=== PATIENT | female | born 1960 | race Caucasian/White ===

== ENCOUNTER 2017-10-31 06:18 | Inpatient (IN) | payer BC ==
[2017-10-30 15:55] VITALS: BMI 24.2
[2017-10-31] MEDS ORDERED: fentaNYL CITRATE 250 MCG/5 ML VIAL ONE ×2 (07:19→11:13)
[2017-10-31] MEDS ORDERED: LIDOCAINE HCL/PF 2% SDV 5ML VIAL ONE (07:20)
[2017-10-31] MEDS ORDERED: SUCCINYLCHOLINE CHLORIDE 200 MG/10 ML VIAL ONE (07:20)
[2017-10-31] MEDS ORDERED: DEXAMETHASONE SOD PHOSPHATE 4 MG/1 ML VIAL ONE (07:20)
[2017-10-31] MEDS ORDERED: MIDAZOLAM HCL 2 MG/2 ML SINGLE DOSE VIAL ONE (07:20)
[2017-10-31] MEDS ORDERED: ROCURONIUM BROMIDE 50 MG/5 ML VIAL ONE ×6 (07:20→15:09)
[2017-10-31] MEDS ORDERED: PROPOFOL 20 ML ONE (07:20)
[2017-10-31] MEDS ORDERED: DESFLURANE GAS 240 ML BOTTLE IH ONE (07:27)
[2017-10-31] MEDS ORDERED: LIDOCAINE HCL 4% PRESERVE-FREE 5 ML AMP ONE (07:32)
[2017-10-31] MEDS ORDERED: HEPARIN NA (PORCINE) 5,000 UNITS/ML 1ML VIAL ONE (07:40)
[2017-10-31] MEDS ORDERED: PAPAVERINE HCL 30 MG/1 ML 10 ML VIAL NR ONE (07:40)
[2017-10-31] MEDS ORDERED: BUPIVACAINE HCL/PF 0.25% (2.5MG/ML) 10 ML VIAL ONE (07:40)
[2017-10-31] MEDS ORDERED: ceFAZolin SODIUM 1 GM VIAL IVPB ONE (08:20)
[2017-10-31] MEDS ORDERED: ceFAZolin SODIUM 1 GM VIAL ONE ×3 (08:21→20:47)
[2017-10-31] MEDS ORDERED: LIDOCAINE 1%/EPI 1:100000 (20 ML MULTI DOSE VIAL) ONE (08:21)
[2017-10-31] MEDS ORDERED: ePHEDrine SULFATE 50 MG/1 ML AMPULE ONE (08:29)
[2017-10-31] MEDS ORDERED: BUPIVACAINE LIPOSOME/PF (EXPAREL) 266 MG/20 ML VIAL NR ONE (08:30)
[2017-10-31] MEDS ORDERED: LIDOCAINE 1%/EPI 1:100000 (20 ML MULTI DOSE VIAL) IJ ONE (08:40)
[2017-10-31] MEDS ORDERED: MINERAL OIL 25 ML OIL ONE (08:53)
[2017-10-31] MEDS ORDERED: ADENOSINE 6 MG/2 ML VIAL IVPUSH ONE (10:37)
[2017-10-31] MEDS ORDERED: NEOSTIGMINE METHYLSULFATE 0.5 MG/ML - 10 ML MDV ONE (17:31)
[2017-10-31] MEDS ORDERED: GLYCOPYRROLATE 0.2 MG/1 ML VIAL ONE (17:31)
[2017-10-31] MEDS ORDERED: diazePAM 5 MG TABLET PO PRN (17:58)
[2017-10-31] MEDS ORDERED: DEXTROSE 5%-0.45% SALINE 1,000 ML IV SCH ×2 (18:00→18:05)
[2017-10-31] MEDS ORDERED: PROMETHAZINE HCL 25 MG/1 ML VIAL IVPB PRN (18:03)
[2017-10-31] MEDS ORDERED: LACTATED RINGERS SOLUTION 1,000 ML IV SCH (18:15)
[2017-11-01] MEDS: DOCUSATE SODIUM 100 MG CAPSULE (FP) PO SCH ×3 (01:18→21:19)
[2017-11-01] MEDS: CEFAZOLIN 1 GM/D5W 1 GM/50 ML BAG IVPB SCH ×4 (02:09→14:41)
[2017-11-01] MEDS: LEVOTHYROXINE NA 125 MCG TABLET (FP) PO SCH (06:33)
[2017-11-01] MEDS: oxyCODONE HCL 5 MG TABLET PO PRN ×4 (06:49→19:41)
--- NOTE | 2017-11-01 07:12 | PN ---
Progress Note (short form) - Note Progress Note: POD#1 s/p bilateral implant removal and reconstruction with bilateral EMILIO flaps. Overnight, her main complaint has been swelling and pressure in bilateral forearms/hands. This has improved with arm elevation. Her abdominal pain is minimal and her breast pain is being controlled with oral pain medication. Afebrile HR: 95-105 BP: 112/51 Sat: 98% on 4L NC I/O: 834/1064 Overnight UO: 1000 Mp drains: / On exam, bilateral breasts are soft. The EMILIO flap skin paddles are warm with normal capillary refill and biphasic doppler signals bilaterally. The abdomen is soft, ND. The lower abdominal incision is C/D/I. The umbilicus is covered and the dressing is dry. A/P POD#1 s/p bilateral implant removal and reconstruction with bilateral EMILIO flaps 1) Continue Q1 hour flap checks, may change to Q2 at 3pm today 2) Start clear liquids, no caffeine 3) Hep lock IVF once tolerating liquids 4) Daily ASA 5) Lovenox for DVT prophylaxis 6) Plan for OOB to chair today with assistance; will plan to start ambulation with PT tomorrow 7) Continue IV Abx 8) No labs unless clinically indicated 9) Case management consult for setting up VNS upon D/C; anticipated D/C on 10) Encourage IS 11) PO pain medication and Valium prn 12) Call with any questions: [phone]
--- NOTE | 2017-11-01 07:44 | OP ---
Operative Note - Note: Operative Date: 11/01/17 Pre-Operative Diagnosis: Breast Cancer Operation: bilateral implant removal and reconstruction with bilateral EMILIO flaps Post-Operative Diagnosis: Same as Pre-op Surgeon: Nick Hook ([facility] co-surgeon) Student Services Coordinator: Neel Lora Anesthesiologist/APPLICATION SYSTEMS ENGINEER: Jamilah Covarrubias (intra-op TAP block) Anesthesia: General Specimens Removed: skin from left & right breast Estimated Blood Loss (mls): 200 Drains & Tubes with Location: SISSY x4 Drains, Volume Out (mls): 600 ([place]) Operative Report Dictated: Yes
--- NOTE | 2017-11-01 07:47 | SURG ---
Surgery Special Education Science Teacher Note Special Education Science Teacher: Neel Lora PA-C Date of Service: 11/01/17 Diagnosis: Breast cancer Procedure: bilateral breast implant removal and reconstruction with bilateral EMILIO flaps I was present for the entirety of the operative procedure. For further detail, please refer to operative report. Visit type - Case Type Case Type: Scheduled Admission - New patient This patient is new to me today: Yes Date on this admission: 11/01/17
[2017-11-01] MEDS ORDERED: DEXTROSE 5%-0.45% SALINE 1,000 ML IV SCH (08:00)
[2017-11-01] MEDS ORDERED: PT OWN MED DRAWER 7, Y5N ONE (09:46)
[2017-11-01] MEDS: ASPIRIN 325 MG TABLET PO SCH (09:49)
[2017-11-01] MEDS: ENOXAPARIN NA (PORCINE) 40 MG/0.4 ML DISP.SYRIN SQ SCH (09:49)
--- NOTE | 2017-11-01 13:15 | PN ---
Teaching Attending Note Name of Resident: Jagruti Colón ATTENDING PHYSICIAN STATEMENT I saw and evaluated the patient. I reviewed the resident's note and discussed the case with the resident. I agree with the resident's findings and plan as documented. SUBJECTIVE: Pt seen and examined in the ICU. Briefly, 57yo female with h/o hypothyroidism, breast ca s/p bilateral mastectomy here for elective surgery now s/p bilateral implant removal and reconstruction with bilateral EMILIO flaps. States pain controlled with current regimen. No shortness of breath or cough. No fevers or chills. OBJECTIVE: Last Vital Signs Temp Pulse Resp BP Pulse Ox 98.4 F 93 H 18 114/54 96 11/01/17 10:00 11/01/17 12:00 11/01/17 12:00 11/01/17 12:00 11/01/17 09:00 Intake & Output 10/29/17 10/30/17 10/31/17 11/01/17 23:59 23:59 23:59 23:59 Intake Total 5100 1384 Output Total 1022.5 1117 Balance 4077.5 267 Weight 68.039 kg 75.495 kg Gen: NAD at rest Heart: RRR Lung: decreased breath sounds at the bases Chest: serosanguinous drainage Abd: soft, incision clean Ext: no edema Active Medications Aspirin (Asa -) 325 mg PO DAILY [facility] Last Admin: 11/01/17 09:49 Dose: 325 mg Diazepam (Valium -) 5 mg PO Q8H PRN PRN Reason: MUSCLE SPASMS Docusate Sodium (Colace -) 100 mg PO BID [facility] Last Admin: 11/01/17 09:49 Dose: 100 mg Enoxaparin Sodium (Lovenox -) 40 mg SQ DAILY [facility] Last Admin: 11/01/17 09:49 Dose: 40 mg Fentanyl (Sublimaze Injection -) 50 mcg IVPUSH [id number] PRN PRN Reason: PAIN-PACU ORDER X 4 DOSES ONLY Last Admin: 10/31/17 19:35 Dose: 50 mcg Cefazolin Sodium (Ancef 1 Gm Premixed Ivpb -) 1 gm in 50 mls @ 100 mls/hr IVPB Q6H-IV [facility] Stop: 11/01/17 20:59 Last Admin: 11/01/17 10:19 Dose: 100 mls/hr Dextrose/Sodium Chloride (D5-1/2ns -) 1,000 mls @ 75 mls/hr IV ASDIR [facility] Last Admin: 11/01/17 08:00 Dose: Not Given Dextrose/Sodium Chloride (D5-1/2ns -) 1,000 mls @ 100 mls/hr IV ASDIR [facility] Last Admin: 10/31/17 19:40 Dose: 100 mls/hr Levothyroxine Sodium (Synthroid -) 125 mcg PO 0700 [facility] Last Admin: 11/01/17 06:33 Dose: 125 mcg Oxycodone HCl (Roxicodone -) 5 mg PO Q4H PRN PRN Reason: PAIN LEVEL 1-5 Last Admin: 11/01/17 07:32 Dose: 5 mg Oxycodone HCl (Roxicodone -) 10 mg PO Q4H PRN PRN Reason: PAIN LEVEL 6-10 Promethazine HCl (Phenergan Injection -) 12.5 mg IVPB Q6H PRN PRN Reason: NAUSEA-FOR RESCUE AFTER 15 MIN ASSESSMENT AND PLAN: Breast Cancer s/p Bilateral Implant Removal/Reconstruction with EMILIO flaps Hypothyroidism - pain control - incentive spirometry - flap monitoring - monitor drain output - PO as tolerated - bowel regimen - OOB to chair - IVF - d/c mathur - DVT prophylaxis - ICU monitoring
--- NOTE | 2017-11-01 16:20 | CONSULT ---
Consultation: REQUESTING PROVIDER: Dr. Nick Hook CONSULT REQUEST: We have been asked to medically evaluate this patient for s/ pbilateral implant removal and reconstruction with bilateral EMILIO flaps. HISTORY OF PRESENT ILLNESS: Patient is a 57 year old female with a PMHx of hypothyroidism and breast cancer s/p bilateral mastectomy who presented for an elective surgery for a bilateral implant removal and reconstruction with bilateral EMILIO flaps. Patient tolerated procedure well with no complications. Patient now in ICU for monitoring of EMILIO flaps. She reports having adequate pain control. Patient otherwise denies any fever, chills, nausea, vomiting, chest pain, palpitations, shortness of breath, cough, night sweats, headaches, acute vision changes, diarrhea, dysuria, hematuria. 24 HOURS: -No acute events -Afebrile, normotensive and adequate O2 saturation -Adequate UO of 1000 -SISSY's draining serosanguinous -Patient OOB REVIEW OF SYSTEMS: CONSTITUTIONAL: Absent: fever, chills, diaphoresis, generalized weakness, malaise, loss of appetite, weight change HEENT: Absent: rhinorrhea, nasal congestion, throat pain, throat swelling, difficulty swallowing, mouth swelling, ear pain, eye pain, visual changes CARDIOVASCULAR: Absent: chest pain, syncope, palpitations, irregular heart rate, lightheadedness , peripheral edema RESPIRATORY: Absent: cough, shortness of breath, dyspnea with exertion, orthopnea, wheezing, stridor, hemoptysis GASTROINTESTINAL: Absent: abdominal pain, abdominal distension, nausea, vomiting, diarrhea, constipation, melena, hematochezia GENITOURINARY: Absent: dysuria, frequency, urgency, hesitancy, hematuria, flank pain, genital pain MUSCULOSKELETAL: Absent: myalgia, arthralgia, joint swelling, back pain, neck pain SKIN: Absent: rash, itching, pallor HEMATOLOGIC/IMMUNOLOGIC: Absent: easy bleeding, easy bruising, lymphadenopathy, frequent infections ENDOCRINE: Absent: unexplained weight gain, unexplained weight loss, heat intolerance, cold intolerance NEUROLOGIC: Absent: headache, focal weakness or paresthesias, dizziness, unsteady gait, seizure, mental status changes, bladder or bowel incontinence PSYCHIATRIC: Absent: anxiety, depression, suicidal or homicidal ideation, hallucinations. PHYSICAL EXAMINATION Vital Signs - 24 hr 10/31/17 10/31/17 10/31/17 17:54 18:10 18:25 Temperature 98.4 F Pulse Rate 102 H 90 90 Respiratory 14 18 18 Rate Blood Pressure 91/56 97/62 98/56 O2 Sat by Pulse 99 92 L 97 Oximetry (%) 10/31/17 10/31/17 10/31/17 18:40 18:55 19:10 Temperature Pulse Rate 98 H 100 H 107 H Respiratory 16 18 16 Rate Blood Pressure 100/54 99/56 88/53 O2 Sat by Pulse 97 94 L 97 Oximetry (%) 10/31/17 10/31/17 10/31/17 19:25 19:40 19:55 Temperature Pulse Rate 107 H 102 H 111 H Respiratory 18 18 16 Rate Blood Pressure 88/53 86/51 92/52 O2 Sat by Pulse 96 96 98 Oximetry (%) 10/31/17 10/31/17 10/31/17 20:10 20:25 20:40 Temperature Pulse Rate 100 H 97 H 101 H Respiratory 16 18 16 Rate Blood Pressure 93/55 95/56 94/58 O2 Sat by Pulse 98 99 99 Oximetry (%) 10/31/17 10/31/17 10/31/17 20:55 21:10 21:25 Temperature 97.5 F L Pulse Rate 100 H 101 H 102 H Respiratory 16 16 14 Rate Blood Pressure 87/56 93/55 93/55 O2 Sat by Pulse 99 99 99 Oximetry (%) 10/31/17 10/31/17 11/01/17 22:00 23:00 00:00 Temperature 98.6 F 98.6 F Pulse Rate 97 H 96 H 95 H Respiratory 20 18 16 Rate Blood Pressure 119/64 103/55 103/55 O2 Sat by Pulse 96 Oximetry (%) 11/01/17 11/01/17 11/01/17 01:00 02:00 03:00 Temperature 97.7 F Pulse Rate 102 H 99 H 95 H Respiratory 16 16 18 Rate Blood Pressure 110/48 104/51 111/52 O2 Sat by Pulse Oximetry (%) 11/01/17 11/01/17 11/01/17 04:00 05:00 06:00 Temperature 97.6 F Pulse Rate 104 H 98 H 105 H Respiratory 18 16 16 Rate Blood Pressure 116/46 105/52 112/51 O2 Sat by Pulse Oximetry (%) 11/01/17 11/01/17 11/01/17 08:00 09:00 10:00 Temperature 98.4 F Pulse Rate 105 H 77 Respiratory 16 16 Rate Blood Pressure 120/54 108/52 O2 Sat by Pulse 96 Oximetry (%) 11/01/17 11/01/17 12:00 14:00 Temperature 98.3 F Pulse Rate 93 H 92 H Respiratory 18 18 Rate Blood Pressure 114/54 101/54 O2 Sat by Pulse Oximetry (%) GENERAL: Awake, alert, and fully oriented, in no acute distress. HEAD: Normal with no signs of trauma. EYES: Sclera anicteric, conjunctiva clear. No lid lag. EARS, NOSE, THROAT: Moist mucous membranes. NECK: Normal range of motion, supple without lymphadenopathy, JVD, or masses. LUNGS: Breath sounds equal, clear to auscultation bilaterally. No wheezes, and no crackles. No accessory muscle use. HEART: Regular rate and rhythm, normal S1 and S2 without murmur, rub or gallop. CHEST: SISSY drains of Left and right breast draining serosanguinous fluids. Bilateral breasts are soft and minor tenderness. ABDOMEN: Soft, nontender, nondistended, Bilateral SISSY's draining serosanguinous. Wound dressing C/D/I MUSCULOSKELETAL: No CVA tenderness. UPPER EXTREMITIES:Cap refill <2 seconds. No peripheral edema. LOWER EXTREMITIES: No calf tenderness. No peripheral edema. NEUROLOGICAL: Cranial nerves II-XII intact. Normal speech. PSYCHIATRIC: Cooperative. Good eye contact. Appropriate mood and affect. SKIN: Warm, dry, normal turgor, no rashes or lesions noted. Active Medications Generic Name Dose Route Start Last Admin Trade Name Freq PRN Reason Stop Dose Admin Aspirin 325 mg 11/01/17 10:00 11/01/17 09:49 Asa - PO 325 mg DAILY [facility] Administration Diazepam 5 mg 10/31/17 17:58 Valium - PO Q8H PRN MUSCLE SPASMS Docusate Sodium 100 mg 10/31/17 22:00 11/01/17 09:49 Colace - PO 100 mg BID [facility] Administration Enoxaparin Sodium 40 mg 11/01/17 10:00 11/01/17 09:49 Lovenox - SQ 40 mg DAILY [facility] Administration Fentanyl 50 mcg 10/31/17 18:03 10/31/17 19:35 Sublimaze Injection - IVPUSH 50 mcg [id number] PRN Administration PAIN-PACU ORDER X 4 DOSES ONLY Cefazolin Sodium 1 gm in 50 mls @ 100 mls/hr 10/31/17 21:00 11/01/17 14:41 Ancef 1 Gm Premixed Ivpb - IVPB 11/01/17 20:59 100 mls/hr Q6H-IV [facility] Administration Dextrose/Sodium Chloride 1,000 mls @ 75 mls/hr 11/01/17 08:00 11/01/17 08:00 D5-1/2ns - IV Not Given ASDIR [facility] Dextrose/Sodium Chloride 1,000 mls @ 100 mls/hr 10/31/17 18:05 10/31/17 19:40 D5-1/2ns - IV 100 mls/hr ASDIR [facility] Administration Levothyroxine Sodium 125 mcg 11/01/17 07:00 11/01/17 06:33 Synthroid - PO 125 mcg 0700 [facility] Administration Oxycodone HCl 5 mg 11/01/17 18:02 11/01/17 07:32 Roxicodone - PO 5 mg Q4H PRN Administration PAIN LEVEL 1-5 Oxycodone HCl 10 mg 10/31/17 17:58 11/01/17 13:52 Roxicodone - PO 10 mg Q4H PRN Administration PAIN LEVEL 6-10 Promethazine HCl 12.5 mg 10/31/17 18:03 Phenergan Injection - IVPB Q6H PRN NAUSEA-FOR RESCUE AFTER 15 MIN ASSESSMENT/PLAN: Patient is a 57 year female who presented for an elective surgery for a bilateral implant removal and reconstruction with bilateral EMILIO flaps. Patient admitted to ICU for monitoring and management. Surgery #S/P Bilateral Implant Removal and Reconstruction w/ Bilateral EMILIO Flaps -Flap checks Q1H and after 15:00 today Q2H -Patient tolerated clear liquids this morning and may advance to regular diet for lunch. Absolutely no caffeine -IV fluids discontinued as patient is tolerating PO -May resume Lovenox and ASA for DVT prophylaxis, as per surgeon -Continue Cefazolin 1gm Q6H -Continue Roxicodone 10mg Q4H PRN for pain control, Fentanyl patch PRN, Valium 5mg po PRN for muscle spasm -OOB today and ambulation with PT starting tomorrow -No labs necessary, as per surgeon Endocrine #Hypothyroidism -Continue Home medication Synthroid 125mcg every morning F/E/N -IV fluids discontinued -No labs today -Tolerated clears and now advanced to regular diet Prophylaxis -Medium risk. Lovenox and ASA for DVT -No GI required Disposition -Full code -Discharge planning in process with hotel service manager on case. As per surgeon, patient will need VNS. Anticipates discharge on 11/03/17 Jagruti Colón [id number] Visit type - Emergency Visit Emergency Visit: No - New Patient This patient is new to me today: Yes Date on this admission: 11/01/17 - Critical Care Critical Care patient: Yes Total Critical Care Time (in minutes): 45 Critical Care Statement: The care of this patient involved high complexity decision making to prevent further life threatening deterioration of the patient 's condition and/or to evaluate & treat vital organ system(s) failure or risk of failure.
[2017-11-01] MEDS: ACETAMINOPHEN 325 MG TABLET (FP) PO PRN (19:37)
[2017-11-02] MEDS: ACETAMINOPHEN 325 MG TABLET (FP) PO PRN ×3 (03:07→19:45)
[2017-11-02] MEDS: LEVOTHYROXINE NA 125 MCG TABLET (FP) PO SCH (06:41)
--- NOTE | 2017-11-02 06:54 | PN ---
Progress Note (short form) - Note Progress Note: POD#2 s/p bilateral implant removal and reconstruction with bilateral EMILIO flaps. OOB and ambulating yesterday. Pain controlled. Arm pain much improved. Tmax: 101.4 Tc:98.3 VSS I/O: 4/2220 UO: 1950 Mp drains: Breast: 35/27 Abd: 94/79 On exam, bilateral breasts are soft. The EMILIO flap skin paddles are warm with normal capillary refill and biphasic doppler signals bilaterally. The abdomen is soft, ND. The lower abdominal incision is C/D/I. The umbilicus dressing was removed and suture line is intact with viable umbilicus/ A/P POD#2 s/p bilateral implant removal and reconstruction with bilateral EMILIO flaps 1) Continue Q2 hour flap checks, may change to Q4 flap checks at noon today 2) D/C Newman this morning 3) Regular Diet (no caffeine) 4) Daily ASA 5) Lovenox for DVT prophylaxis 6) PT consult for ambulation (needs to maintain flexed position at waist at all times) 7) Continue IV Abx 8) No labs unless clinically indicated 9) Case management consult for setting up VNS upon D/C; anticipated D/C on 10) Encourage IS 11) PO pain medication and Valium prn 12) Call with any questions: [phone]
[2017-11-02] MEDS: oxyCODONE HCL 5 MG TABLET PO PRN ×2 (08:31→19:44)
[2017-11-02] MEDS: ENOXAPARIN NA (PORCINE) 40 MG/0.4 ML DISP.SYRIN SQ SCH (09:19)
[2017-11-02] MEDS: ASPIRIN 325 MG TABLET PO SCH (09:20)
[2017-11-02] MEDS: DOCUSATE SODIUM 100 MG CAPSULE (FP) PO SCH ×2 (09:20→21:12)
--- NOTE | 2017-11-02 12:11 | PN ---
Teaching Attending Note Name of Resident: Shady Elliott ATTENDING PHYSICIAN STATEMENT I saw and evaluated the patient. I reviewed the resident's note and discussed the case with the resident. I agree with the resident's findings and plan as documented. SUBJECTIVE: Pt seen and examined in the ICU. Pain controlled. Ambulated with assistance. Febrile overnight. No cough, dysuria or diarrhea. OBJECTIVE: Last Vital Signs Temp Pulse Resp BP Pulse Ox 98.3 F 86 17 110/56 96 11/02/17 05:42 11/02/17 08:00 11/02/17 08:44 11/02/17 08:00 11/02/17 08:44 Intake & Output 10/30/17 10/31/17 11/01/17 11/02/17 23:59 23:59 23:59 23:59 Intake Total 5100 2194 100 Output Total 1022.5 2220 620 Balance 4077.5 -26 -520 Weight 68.039 kg 75.495 kg 75.387 kg Gen: NAD at rest Heart: RRR Lung: decreased breath sounds at the bases Abd: soft, nontender Ext: no edema Active Medications Acetaminophen (Tylenol -) 650 mg PO Q4H PRN PRN Reason: FEVER Last Admin: 11/02/17 08:33 Dose: 650 mg Aspirin (Asa -) 325 mg PO DAILY [facility] Last Admin: 11/02/17 09:20 Dose: 325 mg Diazepam (Valium -) 5 mg PO Q8H PRN PRN Reason: MUSCLE SPASMS Docusate Sodium (Colace -) 100 mg PO BID [facility] Last Admin: 11/02/17 09:20 Dose: 100 mg Enoxaparin Sodium (Lovenox -) 40 mg SQ DAILY [facility] Last Admin: 11/02/17 09:19 Dose: 40 mg Fentanyl (Sublimaze Injection -) 50 mcg IVPUSH [id number] PRN PRN Reason: PAIN-PACU ORDER X 4 DOSES ONLY Last Admin: 10/31/17 19:35 Dose: 50 mcg Levothyroxine Sodium (Synthroid -) 125 mcg PO 0700 [facility] Last Admin: 11/02/17 06:41 Dose: 125 mcg Oxycodone HCl (Roxicodone -) 5 mg PO Q4H PRN PRN Reason: PAIN LEVEL 1-5 Last Admin: 11/01/17 07:32 Dose: 5 mg Oxycodone HCl (Roxicodone -) 10 mg PO Q4H PRN PRN Reason: PAIN LEVEL 6-10 Last Admin: 11/02/17 08:31 Dose: 10 mg Promethazine HCl (Phenergan Injection -) 12.5 mg IVPB Q6H PRN PRN Reason: NAUSEA-FOR RESCUE AFTER 15 MIN ASSESSMENT AND PLAN: Breast Cancer s/p Bilateral Implant Removal/Reconstruction with EMILIO flaps Hypothyroidism - pain control - incentive spirometry - flap monitoring - monitor drain output - PO as tolerated - bowel regimen - OOB to chair - ambulate - DVT prophylaxis - ICU monitoring
--- NOTE | 2017-11-02 13:22 | OP ---
DATE OF OPERATION: 10/31/2017 PREOPERATIVE DIAGNOSES: 1. Personal history of right breast cancer. 2. Acquired absence of bilateral breasts and nipples. 3. Capsular contracture of breast implants. POSTOPERATIVE DIAGNOSES: 1. Personal history of right breast cancer. 2. Acquired absence of bilateral breasts and nipples. 3. Capsular contracture of breast implants. PROCEDURES PERFORMED: 1. Removal of bilateral breast implants with open periprosthetic capsulotomies. 2. Right breast reconstruction with deep inferior epigastric citrus picker microvascular free flap. 3. Left breast reconstruction with deep inferior epigastric citrus picker microvascular free flap. 4. Bilateral partial resection of 3rd ribs. 5. Bilateral exploration of internal mammary vessels, with extensive adventitiectomies. 6. Intraoperative angiography of bilateral mastectomy skin flaps and bilateral lower abdominal flaps using the [employer] system. 7. Processing and interpretation of bilateral intraoperative angiography images. 8. Bilateral ultrasound-guided transverse abdominis plane blocks. SURGEON: Ranjit Cruz MD CO-SURGEON: Josh Orlando M.D. TICKET PRINTER: Neel Lora RPA ANESTHESIA: General endotracheal. ESTIMATED BLOOD LOSS: 200 mL. SPECIMENS: 1. Right breast implant to Pathology. 2. Left breast implant to Pathology. 3. Right breast capsule to Pathology. 4. Left breast capsule to Pathology. DRAINS: 1. No. 15 round Dinh drain x1 to right breast. 2. No. 15 round Dinh drain x1 to left breast. 3. No. 19 round Dinh drain x1 to abdomen. 4. No. 15 round Dinh drain x1 to abdomen. COMPLICATIONS: None. CONDITION: Stable to the recovery room, extubated. INDICATIONS: The patient is a 57-year-old female with a history of breast cancer, who had previously undergone bilateral mastectomies and implant-based reconstruction. The patient presents with bilateral capsular contractures as well as significant rippling of bilateral implants. This contracture has become painful, and the patient is therefore indicated for removal of bilateral implants as well as the contracted capsules and replacement with bilateral deep inferior epigastric citrus picker flaps. The risks, benefits and alternatives of the reconstruction were discussed with the patient and her in detail, and all questions have been answered. The risks include but are not limited to bleeding, infection, pain, need for revision or further surgery, partial or complete flap loss, damage to neighboring structures (including nerves, arteries, veins and tendons). The patient understands these risks and has elected to proceed with surgery. DESCRIPTION OF PROCEDURE: After proper identification and marking of the patient in the preoperative holding area, the patient was transported to the operating room and placed supine on the table, while noninvasive anesthesia monitors were applied. Intravenous access was established. General anesthesia was administered, and the patient was intubated without difficulty. SCD boots were applied to bilateral lower extremities. Intravenous antibiotics were then given. A Newman catheter was then placed. The patient's bilateral breasts, as well as abdomen and flanks, were then prepped and draped in the usual sterile fashion. At this point, Dr. Orlando and I began the reconstruction, working independently as co-surgeons, with separate instrument setups. Attention was first turned towards the right breast, where the previous horizontal mastectomy scar was incised with a No. 10 blade. This was carried down through the full thickness of the subcutaneous tissue with electrocautery until the pectoralis major muscle was encountered. Dissected superiorly on the superficial surface of the pectoralis major muscle, until the superior aspect of the breast pocket was reached. At this point the inferior mastectomy skin flap was raised just above the level of the pectoralis major muscle until the inferior border of the muscle was encountered. The breast implant capsule was then incised at the inferior border of the pectoralis major muscle. The underlying implant was encountered and this was removed and passed off the field to Pathology. At this point, partial removal of the right breast capsule along the inferior pole was performed. This removed capsule was passed off the field and sent to Pathology. At this point, the pectoralis major muscle was secured back down to the chest wall using a 2-0 Vicryl suture in a simple Next, attention was turned toward harvesting of recipient vessels. The interspace between the 2nd and 3rd ribs was identified. Electrocautery was used to divide the pectoralis major muscles along the course of A self-retaining retractor was then placed the 3rd rib was then incised. At this point a [place] elevator was used to perform a circumferential subperiosteal dissection around the 3rd rib. A rongeur was then used to resect the 3rd rib at the costochondral junction. Once an adequate amount of rib had been resected, the periosteum and perichondrium on the deep surface was carefully incised. The underlying internal mammary artery, with both medial and lateral veins, was then visualized. At this point microvascular instruments and techniques were used to explore these internal mammary vessels. Extensive adventitiectomies were performed until adequate length and caliber had been achieved on both the artery and the accompanying vein. At this point, a moist Ray-[place] sponge was placed into the dissection pocket and attention was turned towards the left breast, where the exact same procedure was performed in order to remove the implant, perform a capsulectomy, secure the pectoralis major muscle back down to the chest wall, partially resect the left 3rd rib, and explore the left internal mammary vessels. It should be noted that on the left side, an internal mammary artery and a single medial vein were encountered. Only 1 side of the breast implant removal with capsulectomy and vessel preparation will be dictated, since the exact same procedure was performed bilaterally. Concurrently, harvesting of the lower abdominal tissue was performed. Skin hooks were placed at the 12 and 6 o'clock positions of the umbilicus. The umbilicus was circumferentially incised with a No. 15 blade. A periumbilical adequate periumbilical fat. At this point, the superior and inferior limbs of the lower abdominal flap were incised. The superior limb was carried down through the full thickness of the subcutaneous tissue, with care taken to bevel outwards to capsule maximum volume. Dissection was carried down to the anterior abdominal wall. The superior abdominal skin flap was then raised up to the xiphoid process in the midline and the costal margins bilaterally. At this point, the inferior incision was carried down layer by layer through the subcutaneous tissue. On the right side, a very small superficial inferior epigastric vein was noted, and this was ligated and divided. On the left side, a larger superficial vein was noted and a more proximal dissection was performed along this vein, until adequate length and caliber had been achieved. The vein was then ligated and divided at the most proximal extent of the dissection. The remainder of the subcutaneous tissue was then dissected down to the level of the anterior abdominal wall. At this point the lower abdominal tissue was incised in the midline and completely bisected in a full-thickness fascia down to the linea alba with electrocautery. At this point attention was turned toward dissecting the right-sided flap. The flap was raised from a lateral to medial direction. A large lateral citrus picker with a smaller secondary citrus picker just inferior to it were noted. Both of these perforators were noted to have strong dopplerable signals, and the more superior one was noted to have a strong palpable pulse. The decision was made to base the right-sided flap off of these 2 lateral row perforators. Therefore, the perforators were dissected circumferentially as they exited the fascia. The fascia was then opened around the perforators as well as between them. At this point retrograde citrus picker dissections were performed through the full thickness of the rectus abdominis muscle fibers. Care was taken to divide the muscle fibers longitudinally. Muscular side branches from the perforators were individually identified, circumferentially dissected, ligated and divided. The 2 perforators were dissected down to their takeoffs from the inferior epigastric pedicle on the underside of the rectus abdominis muscle. The superior continuation of the pedicle was ligated and divided. At this point a more proximal pedicle dissection was performed until adequate length and caliber had been achieved on the pedicle. The remainder of the right-sided lower abdominal flap was then raised off of the anterior abdominal wall and it was temporarily stapled in place. A strong Doppler signal was then achieved. A circular skin paddle was then designed around this citrus picker and the remainder of the flap was de-epithelialized. At this point, attention was turned towards the left side. The lower abdominal flap was raised from both lateral and medial directions. Very small lateral row perforators and these were therefore ligated and divided. There was noted to be a large central medial row citrus picker with a strong palpable pulse, and the decision was made to base the flap off of this dominant citrus picker. Therefore, the citrus picker was circumferentially dissected as it exited through the fascia. The fascia was then opened superiorly and inferiorly. The citrus picker was noted to be piercing through an inscription point. At this point, a retrograde citrus picker dissection was performed, in a similar fashion as to the right side. The rectus abdominis muscle fibers were divided longitudinally. Care was taken to individually identify, circumferentially dissect, ligate and divide the muscular side branches. The citrus picker was dissected back to the takeoff of the inferior epigastric pedicle. The superior continuation of the pedicle was ligated and divided. At this point, a more proximal pedicle dissection was performed until adequate length and caliber had been achieved. At this point, the remainder of the remainder of the lower abdominal flap on the left side was raised off the anterior abdominal wall. A skin signal was then achieved and a skin paddle designed around this. The remainder of the flap was de-epithelialized. At this point, the SPY system was brought into the field. A 5-mL intravenous injection of indocyanine green was given. Bilateral mastectomy flap angiography as well as lower abdominal flap angiography was performed. These angiography images were then processed and relative perfusion data was assessed. There was noted to be good perforation to bilateral mastectomy skin flaps, and there was noted to be perfusion to all zones of the lower abdominal flap. Therefore, attention was turned towards the microvascular transfer. Attention was first turned towards the right breast pocket. The left-sided lower abdominal flap was ligated and divided at the most proximal extent of the dissection and was brought up to the right breast pocket, where it was temporarily stapled in place. The flap to the right breast was noted to weigh 293 g. Attention was turned towards the microvascular anastomoses. The 1st venous anastomosis between the medial internal mammary vein and one of the flap veins was performed using a 2.0-mm [employer] cloth printing back tender. Release of all clamps revealed good backflow across this anastomosis. Next, the arterial anastomosis was performed between the internal mammary artery and the inferior epigastric artery. This was performed using an 8-0 nylon suture in a simple interrupted fashion. Release of all clamps revealed good flow across this anastomosis. There was also noted to be good egress of venous blood from the remaining flap vein. At this point, attention was turned towards the 2nd venous anastomosis. The remaining flap vein, which was noted to be draining well, was anastomosed to the more lateral internal mammary vein using a 2.5-mm [employer] cloth printing back tender. Release of all clamps revealed good flow across this anastomosis as well. At this point, the right breast pocket was irrigated and hemostasis was ensured. A No. 15 round Dinh drain was placed into the right breast pocket and brought out through a separate stab incision laterally, and secured to the skin with a 3-0 nylon suture. The right breast flap was then carefully placed into the pocket, and care was taken to ensure a good lie of the pedicle, without twisting or kinking. The flap was then inset to the chest wall using a 2-0 Vicryl suture in a simple interrupted fashion. Once the flap was completely inset, the mastectomy skin flaps were redraped. At this point, there was noted to be brisk capillary refill in the skin paddle. The superficial inferior epigastric vein was then inspected and was noted to be quite full. Therefore, the clamp on this was released, and there was noted to be a shetty of venous blood through this vein. There was noted to be immediate improvement in the flap skin paddle capillary refill. Therefore, dissection along the more lateral flap vein was performed. This vein was then ligated and divided. The superficial inferior epigastric vein was then anastomosed to the more lateral vein of the deep inferior epigastric system using a 2.0-mm [employer] cloth printing back tender. Once this anastomosis was complete and all clamps were removed, there was noted to be normal capillary refill and a strong biphasic signal. Therefore, the flap was re-inset and once it was completely inset, there was noted to be normal capillary refill. The amount of skin paddle to be externalized was then marked. Redundant skin paddle was de-epithelialized. The skin paddle was then inset to the surrounding mastectomy flap skin edges using 3-0 Monocryl in a very deep dermal fashion, followed by 4-0 Monocryl in a running subcuticular fashion. At this point, attention was turned towards the left breast. The right-sided abdominal citrus picker microvascular free flap was ligated and divided at the most proximal extent of the dissection. It was brought up to the left breast pocket, where it was temporarily stapled in place. The microvascular anastomoses were then performed. A 2.0-mm [employer] cloth printing back tender was used to anastomose one of the deep inferior epigastric veins to the retrograde stump of the internal mammary vein. Release of all clamps revealed good backflow across this anastomosis. Next, the arterial anastomosis was performed between the internal mammary artery and inferior epigastric artery using 3-0 nylon suture in a simple interrupted fashion. Release of all clamps revealed good flow across this anastomosis as well. A 2nd venous anastomosis was then performed between the remaining flap vein and the retrograde stump of the internal mammary vein using a 2.5-mm [employer] cloth printing back tender. Release of all clamps revealed good flow across this anastomosis as well. At this point, the left breast pocket was irrigated and hemostasis was ensured. The left breast flap was then carefully placed into the left breast pocket and care was taken to ensure good lie of the pedicle, without twisting or kinking. Once this was ensured, a No. 15 round Dinh drain was placed into the left breast pocket and brought out through a separate stab incision laterally and secured to the skin with 3-0 nylon suture. The left breast skin closure was then performed in a similar fashion as to the right and therefore only 1 side will be dictated. Concurrently, closure of the abdomen was performed. Bilateral fascial incisions were reapproximated primarily using a No. 0 PDO Quill suture in a simple running fashion. Once this was completed, the ultrasound system was brought into the field. Under ultrasound guidance, bilateral transverse abdominis plane regional nerve blocks were performed. A local anesthetic solution consisting of 20 mL of Exparel mixed with 30 mL of 0.25% Marcaine and 80 mL of normal saline was used. A total of 30 mL of this local anesthetic solution was injected into each transversus abdominis plane, again under ultrasound guidance. With the nerve blocks completed, the patient was placed into a flexed position. A No. 15 and a No. 19 round Dinh drains were placed into the abdominal pocket and brought out through separate stab incisions laterally and secured to the skin with 3-0 nylon suture. The abdominal skin flap was temporarily stapled closed. A layered closure of the abdomen was then performed using 2-0 Vicryl in interrupted buried fashion in Junior's layer. This was followed by a 3-0 Biosyn in a buried deep dermal fashion and finally a 4-0 Biosyn in a running subcuticular fashion. The site of the umbilicus transposition had been marked and a vertically-oriented ellipse with a core of fat was excised. The umbilicus was then transposed and inset using a 3-0 Biosyn in a buried deep dermal fashion, followed by a 5-0 nylon in a simple running fashion. Once all incisions were closed, Doppler examination of bilateral flaps revealed strong biphasic signals and normal capillary refill. Therefore, Dermabond was applied to bilateral breast closure lines. Prineo tape was applied to the lower abdominal closure lines. Xeroform followed by dry sterile gauze and Hypafix tape was applied to the umbilicus. All drain exit sites were dressed with Biopatch and Tegaderm. The patient was then placed into a soft surgical bra, and at this point, the patient was slowly awakened and was extubated without incident, and then was transported to the recovery room in stable condition. Doppler examination upon entering the recovery room revealed strong biphasic signals. AUSTIN CRUZ M.D. [id number]
--- NOTE | 2017-11-02 15:51 | PN ---
Physical Exam: SUBJECTIVE: Patient seen and examined in ICU. Reports some pain around surgical site and in both arms bilaterally. Pain controlled successfully with medication. OBJECTIVE: Vital Signs Period Temp Pulse Resp BP Sys/Paul Pulse Ox Last 24 Hr 98.3 F-101.4 F 84-107 17-20 99-128/43-66 96-96 GENERAL: The patient is awake, alert, and fully oriented, in no acute distress. HEAD: Normal with no signs of trauma. EYES: PERRL, extraocular movements intact, sclera anicteric, conjunctiva clear. No ptosis. NECK: Trachea midline, full range of motion, supple. LUNGS: Breath sounds equal, clear to auscultation bilaterally, no wheezes, no crackles, no accessory muscle use. HEART: Regular rate and rhythm, S1, S2 without murmur, rub or gallop. EXTREMITIES: 2+ pulses, warm, well-perfused, no edema. NEUROLOGICAL: Cranial nerves II through XII grossly intact. Normal speech, gait not observed. Active Medications Generic Name Dose Route Start Last Admin Trade Name Freq PRN Reason Stop Dose Admin Acetaminophen 650 mg 11/01/17 19:29 11/02/17 08:33 Tylenol - PO 650 mg Q4H PRN Administration FEVER Aspirin 325 mg 11/01/17 10:00 11/02/17 09:20 Asa - PO 325 mg DAILY NOMI Administration Diazepam 5 mg 10/31/17 17:58 Valium - PO Q8H PRN MUSCLE SPASMS Docusate Sodium 100 mg 10/31/17 22:00 11/02/17 09:20 Colace - PO 100 mg BID NOMI Administration Enoxaparin Sodium 40 mg 11/01/17 10:00 11/02/17 09:19 Lovenox - SQ 40 mg DAILY NOMI Administration Fentanyl 50 mcg 10/31/17 18:03 10/31/17 19:35 Sublimaze Injection - IVPUSH 50 mcg [id number] PRN Administration PAIN-PACU ORDER X 4 DOSES ONLY Levothyroxine Sodium 125 mcg 11/01/17 07:00 11/02/17 06:41 Synthroid - PO 125 mcg 0700 NOMI Administration Oxycodone HCl 5 mg 11/01/17 18:02 11/01/17 07:32 Roxicodone - PO 5 mg Q4H PRN Administration PAIN LEVEL 1-5 Oxycodone HCl 10 mg 10/31/17 17:58 11/02/17 08:31 Roxicodone - PO 10 mg Q4H PRN Administration PAIN LEVEL 6-10 Promethazine HCl 12.5 mg 10/31/17 18:03 Phenergan Injection - IVPB Q6H PRN NAUSEA-FOR RESCUE AFTER 15 MIN ASSESSMENT/PLAN: Patient is a 57 year female who presented for an elective surgery for a bilateral implant removal and reconstruction with bilateral EMILIO flaps. Patient admitted to ICU for monitoring and management. Surgery #S/P Bilateral Implant Removal and Reconstruction w/ Bilateral EMILIO Flaps -Flap checks Q1H and after 15:00 today Q2H -Patient tolerated clear liquids this morning and may advance to regular diet for lunch. Absolutely no caffeine -IV fluids discontinued as patient is tolerating PO -May resume Lovenox and ASA for DVT prophylaxis, as per surgeon -Continue Cefazolin 1gm Q6H -Continue Roxicodone 10mg Q4H PRN for pain control, Fentanyl patch PRN, Valium 5mg po PRN for muscle spasm -OOB today and ambulation successful today, will continue -No labs necessary, as per surgeon Endocrine #Hypothyroidism -Continue Home medication Synthroid 125mcg every morning F/E/N -IV fluids discontinued -No labs today -Tolerated clears and now advanced to regular diet Prophylaxis -Medium risk. Lovenox and ASA for DVT -No GI required Disposition -Full code -Discharge planning in process with patient case manager on case. As per surgeon, patient will need VNS. Anticipates discharge on 11/03/17 Jagruti Colón [id number] Visit type - Emergency Visit Emergency Visit: Yes ED Registration Date: 10/31/17 Care time: The patient presented to the Emergency Department on the above date and was hospitalized for further evaluation of their emergent condition. - New Patient This patient is new to me today: No - Critical Care Critical Care patient: Yes Total Critical Care Time (in minutes): 35 Critical Care Statement: The care of this patient involved high complexity decision making to prevent further life threatening deterioration of the patient 's condition and/or to evaluate & treat vital organ system(s) failure or risk of failure.
[2017-11-03] MEDS: LEVOTHYROXINE NA 125 MCG TABLET (FP) PO SCH (06:13)
--- NOTE | 2017-11-03 07:52 | PN ---
Progress Note (short form) - Note Progress Note: Surgery POD #2 B/L DEIP Flap patient seen and examined at bedside. Patient states she has been oob ambulating with PT and up to use the bathroom. Her pain is controlled and she denies any CP, SOB, N/V/D Fever or chills. Vital Signs Temp 98.2 F 11/03/17 02:00 Pulse 101 H 11/03/17 06:00 Resp 11 L 11/03/17 06:00 BP 137/76 11/03/17 06:00 Pulse Ox 97 11/02/17 20:00 Intake & Output 11/02/17 11/02/17 11/03/17 11:59 23:59 11:59 Intake Total 100 560 300 Output Total 620 145 30 Balance -520 415 270 Weight 166 lb 3.2 oz 166 lb 10.711 oz Intake: Oral 100 560 300 Output: Drainage 120 145 30 #1 LT SIDE(breast) 5 5 #1 Left Breast 5 10 10 #2 LT SIDE(abdomen) 40 20 #2 Left 40 50 0 #3 RT SIDE(breast) 10 5 #3 Right Breast 10 25 15 #4 Both Upper and Lower 5 Breast #4 RT SIDE(abdomen) 5 10 Right Abdomen 20 5 Urine 500 Newman 500 Other: Voiding Method Indwelling Catheter Toilet # Unmeasured Voids Void 2 Bowel Movement No Weight Measurement Method Built in Bedscale Built in Bedscale PE: A&Ox3, NAD unlabored resp on RA b/l breast incisions c/d/i with no d/c no evidence of vascular congestion or tracking erythema, skin is pink, warm and well perfused. B/L Doppler with vascular flow confirmed and unchanged from yesterdays bedside doppler done by me at 16:30. Abdomen incisions C/D/I with no tracking erythema or d/c. J/p drains x 4 with SS discharge appropriate to status. B/L LE compartments soft, supple and non-tender with +2 pedal pulses. Problem List - Problems (1) Breast cancer Assessment/Plan: s/p B/L DEIP flap doing well. Plan: 1) VNS evaluation for wound care and drain management 2) pain control 3) surgical bra at all times 4) keep incisions clean and dry-sponge bathe only 5) d/c planning for home today 6) follow up with Dr Hook as scheduled- see discharge instructions Evaluation and plan discussed with Dr Hook. Code(s): C50.919 - MALIGNANT NEOPLASM OF UNSP SITE OF UNSPECIFIED FEMALE BREAST
[2017-11-03] MEDS: DOCUSATE SODIUM 100 MG CAPSULE (FP) PO SCH (09:29)
[2017-11-03] MEDS: ASPIRIN 325 MG TABLET PO SCH (09:29)
[2017-11-03] MEDS: ENOXAPARIN NA (PORCINE) 40 MG/0.4 ML DISP.SYRIN SQ SCH (09:29)
--- NOTE | 2017-11-03 09:36 | PATH ---
Surgical Pathology Report Patient Name: ROSIE CARO [facility]. Rec. #: [id number] /Age/Gender: 1960 (Age: 57) / F Account: [id number] [facility]: 10/31/2017 Received: 11/01/2017 Reported: 11/03/2017 Physicians: Nick Bryant M.D. Specimen(s) Received A: RIGHT IMPLANT B: LEFT IMPLANT C: LEFT BREAST SKIN D: RIGHT BREAST SKIN Clinical History Breast cancer Final Diagnosis A. COMPUTER PROGRAMMING MANAGER, RIGHT BREAST, REMOVAL: BREAST IMPLANT (GROSS ONLY). B. COMPUTER PROGRAMMING MANAGER, LEFT BREAST, REMOVAL: BREAST IMPLANT (GROSS ONLY). C. SKIN, LEFT BREAST, EXCISION: BENIGN SKIN WITH FOREIGN MATERIAL WITHIN DERMIS. D. SKIN, RIGHT BREAST, EXCISION: BENIGN SKIN WITH FOREIGN MATERIAL WITHIN DERMIS. Comment: Recommend correlation with clinical findings and follow up as clinically indicated. Electronically Signed Kingsley Rodríguez M.D. Gross Description A. Received dry labeled "right implant (breast)" is a 13 x 13 x 7.5 cm gel-filled plastic sac consistent with a breast implant. The specimen is designated [place] 500 cc with the serial #[id number]. This is for gross identification only. B. Received dry labeled "left implant (breast)" is a 13 x 13 x 7.5 cm gel-filled plastic sac consistent with a breast implant. The specimen is designated [place] 500 cc with the serial #[id number] This is for gross identification only. C. Received in formalin labelled "left breast skin" is pieces in which are stapled together and measure in aggregate 4.2 x 3.7 x 0.5 cm. No focal lesions are identified. Director Compensation sections are submitted one cassette. D. Received in formalin labelled "right breast skin" is pieces in which are stapled together and measure in aggregate 4.7 x 3.2 x 0.5 cm. No focal lesions are identified. Director Compensation sections are submitted one cassette [facility]/11/01/2017 [facility]/11/01/2017
--- NOTE | 2017-11-03 13:14 | PN ---
Teaching Attending Note Name of Resident: Shayd Elliott ATTENDING PHYSICIAN STATEMENT I saw and evaluated the patient. I reviewed the resident's note and discussed the case with the resident. I agree with the resident's findings and plan as documented. SUBJECTIVE: Patient seen and examined in the ICU. Pain controlled. Afebrile overnight. No cough, dysuria or diarrhea. OBJECTIVE: Intake & Output 10/31/17 11/01/17 11/02/17 11/03/17 23:59 23:59 23:59 23:59 Intake Total 5100 2194 660 300 Output Total 1022.5 2220 765 30 Balance 4077.5 -26 -105 270 Weight 166 lb 7 oz 166 lb 3.2 oz 166 lb 10.711 oz Last Vital Signs Temp Pulse Resp BP Pulse Ox 98.9 F 86 18 107/82 97 11/03/17 10:51 11/03/17 12:47 11/03/17 12:47 11/03/17 12:47 11/03/17 09:00 Active Medications Acetaminophen (Tylenol -) 650 mg PO Q4H PRN PRN Reason: FEVER Last Admin: 11/02/17 19:45 Dose: 650 mg Aspirin (Asa -) 325 mg PO DAILY [facility] Last Admin: 11/03/17 09:29 Dose: 325 mg Diazepam (Valium -) 5 mg PO Q8H PRN PRN Reason: MUSCLE SPASMS Docusate Sodium (Colace -) 100 mg PO BID [facility] Last Admin: 11/03/17 09:29 Dose: 100 mg Enoxaparin Sodium (Lovenox -) 40 mg SQ DAILY [facility] Last Admin: 11/03/17 09:29 Dose: 40 mg Fentanyl (Sublimaze Injection -) 50 mcg IVPUSH [id number] PRN PRN Reason: PAIN-PACU ORDER X 4 DOSES ONLY Last Admin: 10/31/17 19:35 Dose: 50 mcg Levothyroxine Sodium (Synthroid -) 125 mcg PO 0700 [facility] Last Admin: 11/03/17 06:13 Dose: 125 mcg Oxycodone HCl (Roxicodone -) 5 mg PO Q4H PRN PRN Reason: PAIN LEVEL 1-5 Last Admin: 11/01/17 07:32 Dose: 5 mg Oxycodone HCl (Roxicodone -) 10 mg PO Q4H PRN PRN Reason: PAIN LEVEL 6-10 Last Admin: 11/02/17 19:44 Dose: 10 mg Promethazine HCl (Phenergan Injection -) 12.5 mg IVPB Q6H PRN PRN Reason: NAUSEA-FOR RESCUE AFTER 15 MIN Gen: NAD at rest Heart: RRR Lung: decreased breath sounds at the bases Abd: soft, nontender Ext: no edema ASSESSMENT AND PLAN: Breast Cancer s/p Bilateral Implant Removal/Reconstruction with EMILIO flaps Hypothyroidism - pain control - incentive spirometry - flap monitoring - monitor drain output - PO as tolerated - bowel regimen - OOB to chair - ambulate - D/C planning Dr Chatman
[2017-11-03 14:45] VITALS: BP 135/87; PULSE 92; TEMP 98.3
--- NOTE | 2017-11-03 15:06 | PN ---
Physical Exam: SUBJECTIVE: Patient seen and examined in ICU. No acute events overnight. Denies chest pain, shortness of breath, fever, chills, nausea, vomiting. Patient reports pain controlled with medications. OBJECTIVE: Vital Signs Period Temp Pulse Resp BP Sys/Paul Pulse Ox Last 24 Hr 98.2 F-99.6 F 72-101 - 107-137/57-87 97-97 GENERAL: The patient is awake, alert, and fully oriented, in no acute distress. HEAD: Normal with no signs of trauma. EYES: PERRL, extraocular movements intact, sclera anicteric, conjunctiva clear. NECK: Trachea midline, full range of motion, supple. LUNGS: Breath sounds equal, clear to auscultation bilaterally, no wheezes, no crackles, no accessory muscle use. HEART: Regular rate and rhythm, S1, S2 without murmur, rub or gallop. EXTREMITIES: 2+ pulses, warm, well-perfused, no edema. NEUROLOGICAL: Cranial nerves II through XII grossly intact. Normal speech, gait not observed. Active Medications Generic Name Dose Route Start Last Admin Trade Name Freq PRN Reason Stop Dose Admin Acetaminophen 650 mg 11/01/17 19:29 11/02/17 19:45 Tylenol - PO 650 mg Q4H PRN Administration FEVER Aspirin 325 mg 11/01/17 10:00 11/03/17 09:29 Asa - PO 325 mg DAILY NOMI Administration Diazepam 5 mg 10/31/17 17:58 Valium - PO Q8H PRN MUSCLE SPASMS Docusate Sodium 100 mg 10/31/17 22:00 11/03/17 09:29 Colace - PO 100 mg BID NOMI Administration Enoxaparin Sodium 40 mg 11/01/17 10:00 11/03/17 09:29 Lovenox - SQ 40 mg DAILY NOMI Administration Fentanyl 50 mcg 10/31/17 18:03 10/31/17 19:35 Sublimaze Injection - IVPUSH 50 mcg [id number] PRN Administration PAIN-PACU ORDER X 4 DOSES ONLY Levothyroxine Sodium 125 mcg 11/01/17 07:00 11/03/17 06:13 Synthroid - PO 125 mcg 0700 NOMI Administration Oxycodone HCl 5 mg 11/01/17 18:02 11/01/17 07:32 Roxicodone - PO 5 mg Q4H PRN Administration PAIN LEVEL 1-5 Oxycodone HCl 10 mg 10/31/17 17:58 11/02/17 19:44 Roxicodone - PO 10 mg Q4H PRN Administration PAIN LEVEL 6-10 Promethazine HCl 12.5 mg 10/31/17 18:03 Phenergan Injection - IVPB Q6H PRN NAUSEA-FOR RESCUE AFTER 15 MIN ASSESSMENT/PLAN: Patient is a 57 year female who presented for an elective surgery for a bilateral implant removal and reconstruction with bilateral EMILIO flaps. Patient admitted to ICU for monitoring and management. Discharging today. Surgery #S/P Bilateral Implant Removal and Reconstruction w/ Bilateral EMILIO Flaps -Flap checks Q2H -Patient tolerated clear liquids this morning and may advance to regular diet for lunch. Absolutely no caffeine -IV fluids discontinued as patient is tolerating PO -May resume Lovenox and ASA for DVT prophylaxis, as per surgeon -Continue Cefazolin 1gm Q6H -Continue Roxicodone 10mg Q4H PRN for pain control, Fentanyl patch PRN, Valium 5mg po PRN for muscle spasm -OOB today and ambulation successful today, will continue -No labs necessary, as per surgeon Endocrine #Hypothyroidism -Continue Home medication Synthroid 125mcg every morning F/E/N -IV fluids discontinued -No labs today -Advanced to regular diet Prophylaxis -Medium risk. Lovenox and ASA for DVT -No GI required Disposition -Full code -Discharge today Visit type - Emergency Visit Emergency Visit: Yes ED Registration Date: 10/31/17 Care time: The patient presented to the Emergency Department on the above date and was hospitalized for further evaluation of their emergent condition. - New Patient This patient is new to me today: No - Critical Care Critical Care patient: Yes Total Critical Care Time (in minutes): 35 Critical Care Statement: The care of this patient involved high complexity decision making to prevent further life threatening deterioration of the patient 's condition and/or to evaluate & treat vital organ system(s) failure or risk of failure.
[2017-11-03] MEDS: oxyCODONE HCL 5 MG TABLET PO PRN (16:25)
== END 2017-11-03 17:59 | disposition home or self-care (01) | DRG 583 ==
LOC: JSAMEDAYSX 06:18 → EDSTATUS 08:00 → J6S 20:05 → JSAMEDAYSX 20:15 → JICU 22:18
PROVIDERS: ADMIT Plastic Surgery; ATTEND Plastic Surgery
PROC: 4A1GXSH Monitoring of Skin and Breast Vascular Perfusion using Indocyanine Green Dye, External Approach (ICD-10-PCS; 2017-10-31)
PROC: 0HRV077 Replacement of Bilateral Breast using Deep Inferior Epigastric Artery Perforator Flap, Open Approach (ICD-10-PCS; principal; 2017-10-31 08:00)
PROC: 0HPT0JZ Removal of Synthetic Substitute from Right Breast, Open Approach (ICD-10-PCS; 2017-10-31 08:00)
PROC: 0PB10ZZ Excision of 1 to 2 Ribs, Open Approach (ICD-10-PCS; 2017-10-31 08:00)
DX: C50.919 Malignant neoplasm of unspecified site of unspecified female breast (principal); E03.9 Hypothyroidism, unspecified; Z90.13 Acquired absence of bilateral breasts and nipples
CPT/HCPCS: 86850; 86900; 86901; 94010; 94760; 97116-GP; 97161-GP; J1644

== ENCOUNTER 2018-09-06 08:03 | Day surgery (SDC) | payer BC ==
[2018-08-30 13:53] VITALS: BMI 21.7
[2018-09-06] MEDS ORDERED: EPINEPHrine/PF 1 MG/1 ML (1:1,000) AMPULE ONE ×2 (09:44→10:58)
[2018-09-06] MEDS ORDERED: LIDOCAINE HCL 1% PRESERVATIVE FREE - 30ML VIAL ONE ×2 (09:44→10:57)
[2018-09-06] MEDS ORDERED: SODIUM BICARBONATE 8.4% 50 MEQ/50 ML VIAL ONE ×2 (09:45→10:57)
[2018-09-06] MEDS ORDERED: fentaNYL CITRATE 250 MCG/5 ML VIAL ONE (09:46)
[2018-09-06] MEDS ORDERED: PROPOFOL 20 ML ONE ×2 (09:46)
[2018-09-06] MEDS ORDERED: MIDAZOLAM HCL 2 MG/2 ML SINGLE DOSE VIAL ONE (09:46)
[2018-09-06] MEDS ORDERED: ALBUTEROL SO4 8 GM HFA INHALER IH ONE (09:46)
[2018-09-06] MEDS ORDERED: HALOPERIDOL LACTATE 5 MG/ML ONE (10:24)
[2018-09-06] MEDS ORDERED: ePHEDrine SULFATE 50 MG/1 ML AMPULE ONE ×2 (11:00→13:08)
[2018-09-06] MEDS ORDERED: BUPIVACAINE 0.25% /EPI 1:200,000 10 ML VIAL INF ONE (11:15)
[2018-09-06] MEDS ORDERED: GUM MASTIC/STORAX/MSAL/ALCOHOL 1 DRP DROPSBTL MC ONE (12:42)
[2018-09-06] MEDS ORDERED: BACITRACIN 15 GM TUBE TOPICAL OINTMENT ONE (12:42)
[2018-09-06] MEDS ORDERED: ONDANSETRON 4 MG/2 ML VIAL IVPUSH PRN ×2 (13:52→13:55)
[2018-09-06] MEDS ORDERED: PROMETHAZINE HCL 25 MG/1 ML VIAL IVPUSH PRN (13:52)
[2018-09-06] MEDS ORDERED: oxyCODONE HCL 5 MG TABLET PO PRN ×2 (13:52)
[2018-09-06] MEDS ORDERED: ACETAMINOPHEN 325 MG TABLET (FP) PO PRN (13:55)
[2018-09-06] MEDS ORDERED: LACTATED RINGERS SOLUTION 1,000 ML IV SCH (14:00)
[2018-09-06 15:47] VITALS: TEMP 97.3
[2018-09-06 15:52] VITALS: BP 124/66
[2018-09-06 16:29] VITALS: PULSE 92
--- NOTE | 2018-09-08 10:36 | OP ---
DATE OF OPERATION: 09/06/2018 PREOPERATIVE DIAGNOSES: 1. Personal history of breast cancer. 2. Acquired absence of bilateral breasts and nipples. 3. Deformity of bilateral reconstructed breasts. POSTOPERATIVE DIAGNOSES: 1. Personal history of breast cancer. 2. Acquired absence of bilateral breasts and nipple. 3. Deformity of bilateral reconstructed breasts. PROCEDURES: 1. Bilateral nipple areolar reconstruction. 2. Subcutaneous tissue transfer from bilateral thighs to bilateral breasts. 3. Scar revision of lower abdomen and umbilicus (12 cm in length). ATTENDING SURGEON: Nick Hook MD ANESTHESIA: General with LMA. ESTIMATED BLOOD LOSS: Less than 20 mL. SPECIMEN: None. DRAINS: None. COMPLICATIONS: None. CONDITION: Stable to recovery room, extubated. INDICATIONS: The patient is a 58-year-old female with a history of breast cancer who was previously entered on bilateral [id number] mastectomies and implant based reconstruction. The patient most recently underwent removal of bilateral implants and bilateral autologous breast reconstruction with deep inferior epigastric nitroglycerin nitrator operator batch microvascular free flaps. Postoperatively, the patient has done very well and now presents for secondary breast reconstruction in order to finalize and symmetrize the breasts. The risks, benefits, and alternatives of the reconstructive procedures were discussed with the patient and her in detail preoperatively, and all questions were answered. The risks include, but are not limited to, bleeding, infection, pain, need for revision or further surgery, partial to complete flap loss, partial to complete skin loss, damage to neighboring structures including nerves, arteries, veins, and tendons. The patient understands these risks and has elected to proceed with surgery. DESCRIPTION OF PROCEDURE: After proper identification and marking the patient in the preoperative holding area, the patient was transported to the operating room, placed supine on the table while noninvasive anesthesia monitors were applied. Intravenous access was established, general anesthesia was administered, and an LMA was inserted without difficulty. SCD boots were applied to the bilateral lower extremities. Intravenous antibiotics were then given. At this point, the patients bilateral breasts as well as abdomen, bilateral flanks, and bilateral medial and lateral thighs were prepped and draped in the usual sterile fashion. After a time-out was performed, attention was first turned towards the lower abdomen where elliptical excisions had been drawn bilaterally at the lateral extents of the patients previous lower abdominal scar. These areas as well as around the umbilical scar were infiltrated with 0.25% Marcaine with 1:200,000 epinephrine. In addition, the same local anesthetic solution was injected in bilateral groin creases at the site of the planned access incision for harvesting of the lipoaspirate. A No. 15 blade was used to elliptically excise the bilateral lower abdominal dog ears with care taken to include the subcutaneous fat. These bilateral skin excisions were passed off the field to be discarded. The bilateral groin crease incisions were then made, as well. Standard tumescent solution was then infiltrated into the subcutaneous tissue of bilateral medial and lateral thighs. While this was given time to take effect, attention was turned towards the umbilicus. The umbilicus was circumferentially incised just outside of the previous umbilical scar. The umbilical scar was then completely excised in a circumferential fashion. At this point, a 3-0 PDS suture was used to perform tacking sutures of the umbilical stalk down to the underlying abdominal fascia in simple interrupted fashion at the 12 and 6 o'clock positions. Once this was completed, 3-point sutures were placed between the deep dermis of the surrounding abdominal skin and the umbilical stalk and the abdominal wall fascia in order to give an ideal umbilical contour. This was performed at the 12, 3, 6, and 9 o'clock positions, and 3-0 PDS sutures were then placed in between these in buried deep dermal fashion. Finally, a 4-0 Monocryl suture was used to close the skin in a running subcuticular fashion. At this point, the MicroAire system was loaded with a 4-mm cannula, and it was hooked up to the revolved collection system. The MicroAire system was then used to harvest lipoaspirate from bilateral medial and lateral thighs, and the lipoaspirate was collected into the system for later process. Once an adequate amount of lipoaspirate had been collected, the access incisions along the groin creases were closed with a 5-0 plain gut in a simple interrupted fashion. Bilateral lower abdominal dog ear excision sites were closed in layers with a 3-0 Monocryl in a buried deep dermal fashion followed by a 4-0 Monocryl in a running subcuticular fashion. At this point, the lipoaspirate was processed on the back table using multiple warm lactated Ringer washes. The isolated adipocytes were transferred into 60-mL syringes and then later transferred into 10-mL syringes in preparation for subcutaneous tissue transfer. At this point, attention was turned towards the left breast for the nipple areolar reconstruction. The site of the nipple position within the EMILIO flap skin paddle was confirmed, and a modified C-V flap design was drawn. All incisions of the nipple reconstruction were made with a No. 15 blade and carried down into the subcutaneous fat. The nipple reconstruction skin flaps were then raised with care taken to include adequate subcutaneous fat. The donor limbs were closed with a 4-0 Monocryl in a buried deep dermal fashion. The nipple skin flaps were then transposed and inset to each other using a 5-0 plain gut in a simple interrupted fashion. The base and top of the nipple reconstructions were then closed with a 5-0 plain gut in a simple running fashion. Once the nipple mound was created, a 42-mm cookie-cutter was centered around the newly created nipple mound, and the site of the jesse-areola was marked. This was incised with a No. 15 blade and carried just below the level of the dermis until the surrounding skin edges were completely released around the jesse-areola. At this point, a 5-0 plain gut suture was used to reapproximate the surrounding mastectomy flap skin edges to the jesse-areola in a simple running fashion in order to distribute the skin in a uniform fashion. Once the nipple areolar reconstruction was completed on the left side, attention was turned towards the right side, where the exact same procedure was performed, and therefore only one side will be dictated. Once bilateral nipple areolar reconstructions were completed, the isolated adipocytes loaded into 10-mL syringes were brought up to bilateral breasts. Stab incisions were made along bilateral inframammary folds, and the [employer] Cannula was used to distribute the adipocytes in a layered fashion to bilateral breasts. A total of 220 mL of adipocytes were layered between the 2 breasts, and there was noted to be an excellent correction in the patients preoperative bilateral breast deformity. Once all of the adipocytes had been transferred, the access incisions along the inframammary folds were closed with a 5-0 plain gut in a simple interrupted fashion. At this point, all operative sites were cleansed with normal saline solution. Mastisol and Steri-Strips were applied to the lower abdominal and umbilical closure lines, as well as around bilateral jesse-areolas. A nipple protective dressing was then placed with Bacitracin placed over the nipple mount bilaterally. The patient at this point was placed into a soft surgical bra with care taken to ensure adequate padding with fluffs and ABD pads. The patient at this point was slowly awakened and was extubated without incident and then was transported to the recovery room in stable condition. NICK HOOK M.D. [id number]
== END 2018-09-06 16:33 | disposition home or self-care (01) ==
LOC: FASU 08:03
PROVIDERS: ATTEND Plastic Surgery
PROC: 0HQW0ZZ Repair Right Nipple, Open Approach (ICD-10-PCS; 2018-09-06)
PROC: 0JB80ZZ Excision of Abdomen Subcutaneous Tissue and Fascia, Open Approach (ICD-10-PCS; 2018-09-06)
PROC: 0HRV07Z Replacement of Bilateral Breast with Autologous Tissue Substitute, Open Approach (ICD-10-PCS; principal; 2018-09-06 10:00)
PROC: 0HQX0ZZ Repair Left Nipple, Open Approach (ICD-10-PCS; 2018-09-06 10:00)
DX: Z85.3 Personal history of malignant neoplasm of breast (principal); Z90.13 Acquired absence of bilateral breasts and nipples; N65.0 Deformity of reconstructed breast
CPT/HCPCS: 94760